=== PATIENT | male | born 1955 | race Caucasian/White ===

== ENCOUNTER → 2023-10-25 12:54 | Outpatient (REF) | payer BC, SELFPAY | LOC: RAD 12:54 | PROVIDERS: ATTENDING PHYSICIAN Internal Medicine Rheumatology; FAMILY PHYSICIAN Family Medicine | DX: M13.0 Polyarthritis, unspecified (principal) | CPT/HCPCS: 73130; 73630 ==

== ENCOUNTER → 2024-01-06 06:36 | Day surgery (SDC) | payer BC, SELFPAY | LOC: GI 06:36 | PROVIDERS: ATTENDING PHYSICIAN Internal Medicine | DX: Z12.11 Encounter for screening for malignant neoplasm of colon (principal); D12.0 Benign neoplasm of cecum; D12.2 Benign neoplasm of ascending colon; D12.5 Benign neoplasm of sigmoid colon; K57.30 Diverticulosis of large intestine without perforation or abscess without bleeding; K62.1 Rectal polyp; K64.9 Unspecified hemorrhoids; Z86.010 Personal history of colon polyps | CPT/HCPCS: 45385; 88305 ==

== ENCOUNTER → 2024-03-27 10:35 | Outpatient (REF) | payer BC, SELFPAY | LOC: RAD 10:35 | PROVIDERS: ATTENDING PHYSICIAN Anesthesiology Pain Medicine; FAMILY PHYSICIAN Family Medicine | DX: M54.16 Radiculopathy, lumbar region (principal); M54.50 Low back pain, unspecified; M43.10 Spondylolisthesis, site unspecified | CPT/HCPCS: 72100 ==

== ENCOUNTER → 2024-04-29 07:16 | Outpatient (REF) | payer BC, SELFPAY | LOC: RCS 07:16 | PROVIDERS: ATTENDING PHYSICIAN Internal Medicine Cardiovascular Disease; FAMILY PHYSICIAN Family Medicine | DX: Z86.79 Personal history of other diseases of the circulatory system (principal) | CPT/HCPCS: 78452; 93017; A9500 ==